=== PATIENT | male | born 1945 | race Caucasian/White ===

== ENCOUNTER 2018-01-25 12:52 | Emergency (ER) | payer MEDICARE ==
[2018-01-25] MEDS ORDERED: DIPH,PERTUS(ACELL)TETVAC-LF 0.5 ML VIAL IM ONE (13:36)
[2018-01-25] MEDS ORDERED: ceFAZolin 1,000 MG in DEXTROSE/WATER 1 50ML.BAG IVPB STA (13:36)
--- NOTE | 2018-01-25 13:46 | ED ---
General Adult HPI - General Chief complaint: Skin/Abscess/Foreign Body Stated complaint: Left Lower Leg Swollen/Discoloration Time Seen by Provider: 01/25/18 13:17 Source: patient Mode of arrival: ambulatory Limitations: no limitations - History of Present Illness Initial comments: The superficial ulcer on the left distal leg, was seen in the urgent care and they gave him some injection and this anymore send mom and some antibiotics to [place] the area patient feels that the infection is spreading to my denies any fever no chills he does have a rash which is affecting his lower extremity as well as anterior abdomen and torso he was in a hotel recently when he was driving back from [place], I don't recall any bedbugs VID does have a history of heart disease he is status post CABG and knees he said he is a borderline diabetic. No headaches no neck stiffness or chest pain or shortness of breath his left leg is always bigger than the right side this is where which was the donor site for his CABG - Related Data Home Medications Medication Instructions Recorded Confirmed Aspirin 81 mg PO DAILY 03/07/15 01/25/18 Benazepril HCl 20 mg PO DAILY 03/07/15 01/25/18 Isosorbide Mononitrate [Isosorbide 30 mg PO DAILY 03/07/15 01/25/18 Mononitrate ER] Metoprolol Tartrate [Lopressor] 50 mg PO BID 03/07/15 01/25/18 Ubidecarenone [Co Q-10] 100 mg PO DAILY 03/07/15 01/25/18 Warfarin [Coumadin] 5 mg PO HS 03/07/15 01/25/18 amLODIPine [Norvasc] 5 mg PO DAILY 03/07/15 01/25/18 [place]-3 Fatty Acids [[place]-3] 1,000 mg PO DAILY 11/01/16 01/25/18 Atorvastatin [Lipitor] 20 mg PO DAILY 01/25/18 01/25/18 Cephalexin [Keflex] 500 mg PO Q12HR 01/25/18 01/25/18 Multivitamins, Thera [Multivitamin 1 tab PO DAILY@1200 01/25/18 01/25/18 (formulary)] Previous Rx's Medication Instructions Recorded Sulfamethox-Tmp 800-160Mg [Bactrim 1 tab PO Q12HR #20 tab 01/25/18 DS 800-160 mg] Allergies Allergy/AdvReac Type Severity Reaction Status Date / Time No Known Allergies Allergy Verified 01/25/18 13:55 Review of Systems ROS Statement: Those systems with pertinent positive or pertinent negative responses have been documented in the HPI. ROS Other: All systems not noted in ROS Statement are negative. Past Medical History Past Medical History: Hypertension, Osteoarthritis (OA) Additional Past Medical History / Comment(s): hiatal hernia History of Any Multi-Drug Resistant Organisms: None Reported Past Surgical History: Coronary Bypass/CABG, Heart Catheterization, Orthopedic Surgery Additional Past Surgical History / Comment(s): triple bypass-1996, lt knee surg. Past Anesthesia/Blood Transfusion Reactions: No Reported Reaction Past Psychological History: No Psychological Hx Reported Smoking Status: Former smoker Past Alcohol Use History: Daily Past Drug Use History: None Reported - Past Family History Father Family Medical History: Myocardial Infarction (ID) General Exam - General Exam Comments Initial Comments: General: The patient is awake and alert, in no distress, and does not appear acutely ill. Skin: Skin is warm and dry and no rashes or lesions are noted. Some venous stasis on the both legs left worse than the right noticed a superficial ulcer circumference of the left leg is larger than the right leg slightly tender over the gastrocnemius area skin color and capillary refill is within normal range Eye: Pupils are equal, round and reactive to light, extra-ocular movements are intact; there is normal conjunctiva bilaterally. Ears, nose, mouth and throat: There are moist mucous membranes and no oral lesions. Neck: The neck is supple, there is no tenderness or JVD. Cardiovascular: There is a regular rate and rhythm. No murmur, rub or gallop is appreciated. Respiratory: To auscultation bilateral, no wheezing no rhonchi no distress respiratory rehman noticed Gastrointestinal: Soft, non-distended, non-tender abdomen without masses or organomegaly noted. There is no rebound or guarding present. Bowel sounds are unremarkable. Back: There is no tenderness to palpation in the midline. There is no obvious deformity. Musculoskeletal: Normal ROM, no tenderness, There is no pedal edema. There is no calf tenderness or swelling. No cords were appreciated. Neurological: CN II-XII intact, Cranial nerves III through XII are intact. There are no obvious motor or sensory deficits. Coordination appears grossly intact. Speech is normal. Psychiatric: Cooperative, appropriate mood & affect, normal judgment. Limitations: no limitations Course Vital Signs 01/25/18 01/25/18 13:02 14:18 Temperature 98.3 F 98.3 F Pulse Rate 83 72 Respiratory 20 18 Rate Blood Pressure 157/89 120/83 O2 Sat by Pulse 97 98 Oximetry Patient was reassessed at 1530, WITH THE LEGS UNREMARKABLE VITALS WHITE COUNT IS NORMAL WOUND CULTURE CULTURE WAS DONE I SPOKE WITH DR. EMMIE OLEA RECOMMENDED THE BACTRIM DOUBLE STRENGTH 1 TABLET TWICE DAILY FOR NEXT 10 DAYS AND NOW SINCE HE IS ON A COUMADIN WE CANNOT MAKE HIM SKIP COUPLE OF DAYS FOR HIS COUMADIN DOSE CONSIDERING BACTRIM BUMPS OF THE INR IS AN OLD HIS COUMADIN ON TUESDAYS AND SATURDAYS AND NOW DR. OLEA WAS TO SEE HIM IN THE OFFICE TOMORROW OR DAY AFTER TOMORROW Medical Decision Making - Lab Data Result diagrams: 01/25/18 14:05 01/25/18 14:05 Lab Results 01/25/18 01/25/18 Range/Units 14:05 14:05 WBC 5.1 (3.8-10.6) k/uL RBC 4.70 (4.30-5.90) m/uL Hgb 15.2 (13.0-17.5) gm/dL Hct 43.5 (39.0-53.0) % MCV 92.6 (80.0-100.0) fL MCH 32.3 (25.0-35.0) pg MCHC 34.9 (31.0-37.0) g/dL RDW 12.5 (11.5-15.5) % Plt Count 128 L (150-450) k/uL Neutrophils % 67 % Lymphocytes % 17 % Monocytes % 8 % Eosinophils % 7 % Basophils % 1 % Neutrophils # 3.4 (1.3-7.7) k/uL Lymphocytes # 0.9 L (1.0-4.8) k/uL Monocytes # 0.4 (0-1.0) k/uL Eosinophils # 0.3 (0-0.7) k/uL Basophils # 0.0 (0-0.2) k/uL Sodium 138 (137-145) mmol/L Potassium 4.2 (3.5-5.1) mmol/L Chloride 103 (98-107) mmol/L Carbon Dioxide 25 (22-30) mmol/L Anion Gap 10 mmol/L BUN 10 (9-20) mg/dL Creatinine 0.64 L (0.66-1.25) mg/dL Est GFR (MDRD) Af Amer >60 (>60 ml/min/1.73 sqM) Est GFR (MDRD) Non-Af >60 (>60 ml/min/1.73 sqM) Glucose 193 H (74-99) mg/dL Calcium 9.0 (8.4-10.2) mg/dL Total Bilirubin 0.8 (0.2-1.3) mg/dL AST 73 H (17-59) U/L ALT 63 (21-72) U/L Alkaline Phosphatase 82 (38-126) U/L Total Protein 7.0 (6.3-8.2) g/dL Albumin 4.2 (3.5-5.0) g/dL Disposition Clinical Impression: Left leg swelling, Left leg cellulitis Disposition: HOME SELF-CARE Condition: Good Instructions: Cellulitis (ED) Prescriptions: Sulfamethox-Tmp 800-160Mg [Bactrim DS 800-160 mg] 1 tab PO Q12HR #20 tab Referrals: Ronnie Olea MD [Primary Care Provider] - 1-2 days
[2018-01-25 14:18] VITALS: RESP 18
[2018-01-25 14:27] LABS: Basophils % (A) 1 %; Eosinophils # (A) 0.3 k/uL (0-0.7); Eosinophils % (A) 7 %; HCT 43.5 % (39.0-53.0); HGB 15.2 gm/dL (13.0-17.5); Lymphocytes # (A) 0.9 k/uL (1.0-4.8); Lymphocytes % (A) 17 %; MCH 32.3 pg (25.0-35.0); MCHC 34.9 g/dL (31.0-37.0); MCV 92.6 fL (80.0-100.0); Mean Platelet Volume 7.5; Monocytes # (A) 0.4 k/uL (0-1.0); Monocytes % (A) 8 %; Neutrophils # (A) 3.4 k/uL (1.3-7.7); Neutrophils % (A) 67 %; Platelet Count 128 k/uL (150-450); RDW 12.5 % (11.5-15.5); WBC 5.1 k/uL (3.8-10.6)
[2018-01-25 14:32] LABS: ALT 63 U/L (21-72); AST 73 U/L (17-59); Albumin 4.2 g/dL (3.5-5.0); Alkaline Phosphatase 82 U/L (38-126); Anion Gap 10 mmol/L; Blood Urea Nitrogen 10 mg/dL (9-20); Carbon Dioxide 25 mmol/L (22-30); Chloride 103 mmol/L (98-107); Glucose 193 mg/dL (74-99); Potassium 4.2 mmol/L (3.5-5.1); Sodium 138 mmol/L (137-145); Total Bilirubin 0.8 mg/dL (0.2-1.3)
--- NOTE | 2018-01-25 15:01 | US ---
EXAMINATION TYPE: US venous doppler duplex LE LT DATE OF EXAM: 01/25/2018 2:45 PM COMPARISON: NONE CLINICAL HISTORY: Pain. Discoloration and edema left lower leg, area is weeping. Patient on Coumadin for AFIB SIDE PERFORMED: Left TECHNIQUE: The lower extremity deep venous system is examined utilizing real time linear array sonog juan with graded compression, doppler sonography and color-flow sonography. VESSELS IMAGED: External Iliac Vein (EIV) Common Femoral Vein Deep Femoral Vein Greater Saphenous Vein * Femoral Vein Popliteal Vein Small Saphenous Vein * Proximal Calf Veins (* superficial vessels) Left Leg: No evidence of DVT IMPRESSION: Negative exam. No evidence of deep venous thrombosis in the left leg.
[2018-01-25 15:50] VITALS: BP 133/83; PULSE 75; TEMP 97.1
== END 2018-01-25 15:50 | disposition home or self-care (01) ==
LOC: EC 12:52
DX: L03.116 Cellulitis of left lower limb (principal); L97.929 Non-pressure chronic ulcer of unspecified part of left lower leg with unspecified severity; L97.919 Non-pressure chronic ulcer of unspecified part of right lower leg with unspecified severity; I87.8 Other specified disorders of veins; I10 Essential (primary) hypertension; M19.90 Unspecified osteoarthritis, unspecified site; Z87.891 Personal history of nicotine dependence; Z79.01 Long term (current) use of anticoagulants; Z79.82 Long term (current) use of aspirin; Z79.899 Other long term (current) drug therapy; Z98.890 Other specified postprocedural states; Z95.1 Presence of aortocoronary bypass graft; Z23 Encounter for immunization
CPT/HCPCS: 36415; 80053; 85025; 87070; 87205; 93971; 90715; 99283; 96365; 90471; J0690

== ENCOUNTER → 2018-07-10 | Outpatient (CLI) | payer MEDICARE, OTHER ==
--- NOTE | 2018-07-11 10:01 | US ---
EXAMINATION TYPE: US kidneys/renal and bladder DATE OF EXAM: 07/10/2018 COMPARISON: NONE CLINICAL HISTORY: R80.8 Proteinuria. Diabetic EXAM MEASUREMENTS: Right Kidney: 11.4 x 6.2 x 4.7 cm Left Kidney: 12.1 x 5.9 x 6.7 cm Post Void Residual Volume: 11.6 mL Right Kidney: No hydronephrosis or masses seen Left Kidney: No hydronephrosis or masses seen. Hyperechoic renal sinus is incidentally noted on left Bladder: wnl Bilateral Jets seen: Yes Normal Post Void Residual: Yes There is no evidence for hydronephrosis at this point in time. No nephrolithiasis is seen. No susy s are identified. The urinary bladder is anechoic. Bilateral ureteral jets are seen. IMPRESSION: No hydronephrosis is evident bilaterally.
== END | disposition home or self-care (01) ==
LOC: RADUSWWP 15:36
PROVIDERS: ATTEND Family Medicine
DX: R80.8 Other proteinuria (principal)
CPT/HCPCS: 76770

== ENCOUNTER → 2021-08-27 | Outpatient (CLI) | payer MEDICARE ==
--- NOTE | 2021-08-27 13:48 | CT ---
EXAMINATION TYPE: CT urogram wo/w con DATE OF EXAM: 08/27/2021 COMPARISON: Renal ultrasound July 10, 2018 HISTORY: Unknown infection with hematuria CT DLP: 2701.1 mGycm, Automated Exposure Control for Dose Reduction was Utilized. CONTRAST: CT scan of the abdomen and pelvis is performed without oral and without and with IV Contrast, patient injected with 100 mL of Isovue 300. Urogram protocol with 3-D reconstructed images created on an ind epVentario workstation and reviewed FINDINGS: KUB: Noncontrast images show no distinct renal calculi bilaterally. Postcontrast images show symmetri c cord compression uptake and excretion without concerning solid or cystic renal mass or hydronephros is seen bilaterally. There is satisfactory opacification of the bilateral ureters without obstructing mass or stone. Bladder wall shows mild wall thickening initially which improves upon increased diste ntion. No suspicious intraluminal mass or calculus is present. LUNG BASES: No significant abnormality is appreciated. LIVER/GB: Liver diffusely low dense on noncontrast images consistent with mild diffuse fatty infiltra tion. PANCREAS: No significant abnormality is seen. SPLEEN: No significant abnormality is seen. ADRENALS: No significant abnormality is seen. BOWEL: Normal-appearing appendix from cecum incidentally noted. PROSTATE/SEMINAL VESICLES: Prostate gland upper limits of normal size bulging on the bladder base. LYMPH NODES: No greater than 1cm abdominal or pelvic lymph nodes are appreciated. OSSEOUS STRUCTURES: No significant abnormality is seen. OTHER: Mild to moderate calcified plaque of the aorta extends into branch vessels. IMPRESSION: Source of hematuria not identified.
== END | disposition home or self-care (01) ==
LOC: RADCTMAIN 11:25
PROVIDERS: ATTEND Urology
DX: R31.9 Hematuria, unspecified (principal)
CPT/HCPCS: 74178; 74400; Q9967

== ENCOUNTER → 2022-12-17 | Outpatient (CLI) | payer MEDICARE ==
--- NOTE | 2022-12-18 12:46 | MR ---
EXAMINATION TYPE: MR lumbar spine wo con DATE OF EXAM: 12/17/2022 5:32 PM COMPARISON: 08/27/2021 CT. 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 IV Contrast: None. FINDINGS: Alignment: The lumbar vertebral bodies have preserved heights and alignment. Cord: The conus medullaris and the distal spinal cord appear unremarkable with regards to their signa l intensity and morphology. Bones/Discs: Scattered Modic endplate changes are seen throughout the spine. Mild inversion recovery edema along the anterior inferior endplate of L4. Multilevel disc desiccation is present. T12-L1: No evidence of significant spinal canal stenosis or neural foraminal stenosis. L1-L2: No evidence of significant spinal canal stenosis or neural foraminal stenosis. L2-L3: No evidence of significant spinal canal stenosis. Facet joint arthropathy mild bilateral neura l foraminal stenosis. L3-L4: Disc bulge and facet joint arthropathy result in moderate spinal canal and moderate right and mild left bilateral neural foraminal stenosis. Trace bilateral facet joint effusions left greater eloy n right. L4-L5: Disc bulge and facet joint arthropathy result in mild spinal canal and severe right and modera te left neural foraminal stenosis. L5-S1: The disc is rounded posterior morphology without significant spinal canal stenosis. Facet join t arthropathy with moderate to severe right and mild left neural foraminal stenosis. Trace left facet joint effusion. Other findings: None. IMPRESSION: 1. No definitive evidence of disc herniation 2. Multilevel disc degeneration with associated osteoarthritic changes most pronounced in the neural foramen on the right with severe L4-L5, moderate L3-L4 and moderate to severe L5-S1 neural foraminal stenosis on the right.
== END | disposition home or self-care (01) ==
LOC: RADMRIMAIN 16:25
PROVIDERS: ATTEND Nurse Practitioner Family
DX: M47.26 Other spondylosis with radiculopathy, lumbar region (principal); M51.16 Intervertebral disc disorders with radiculopathy, lumbar region; M51.17 Intervertebral disc disorders with radiculopathy, lumbosacral region; M48.061 Spinal stenosis, lumbar region without neurogenic claudication; M99.73 Connective tissue and disc stenosis of intervertebral foramina of lumbar region
CPT/HCPCS: 72148

== ENCOUNTER → 2023-02-11 | Outpatient (CLI) | payer MEDICARE ==
--- NOTE | 2023-02-11 15:38 | US ---
EXAMINATION TYPE: US abdomen complete DATE OF EXAM: 02/11/2023 COMPARISON: CT 2020, US 2018 CLINICAL HISTORY: R74.01. Elevated transaminase level. TECHNIQUE: Multiple sonographic images of the abdomen are obtained. FINDINGS: EXAM MEASUREMENTS: Liver Length: 20.4 cm a normal less than 15.5 cm. Gallbladder Wall: 0.24 cm CBD: 0.45 cm Spleen: 13.6 cm normal less than 12.5 cm. Right Kidney: 11.6 x 5.7 x 5.1 cm Left Kidney: 12.5 x 5.6 x 6.3 cm ASSISTANT GM OF CONTENT & DELIVERY NOTES: Limited due to gas. Pancreas: Not well seen. Liver: Appears enlarged and very heterogeneous with increased echogenicity. Limited. Gallbladder: Appears anechoic. Evidence for sonographic Sheikh's sign: No CBD: Portions seen appear wnl Spleen: Appears slightly enlarged. Right Kidney: Appears wnl Left Kidney: Appears enlarged. Upper IVC: Appears wnl Abd Aorta: Aorta appears ectatic. Limited segments were seen. Prox not seen. Mid and distal appear ectatic and distal appears upper limits at 2.9 cm AP. IMPRESSION: 1. Hepatomegaly. 2. Mild splenomegaly
== END | disposition home or self-care (01) ==
LOC: RADUSWWP 09:36
PROVIDERS: ATTEND Internal Medicine
DX: R16.2 Hepatomegaly with splenomegaly, not elsewhere classified (principal); R74.01 Elevation of levels of liver transaminase levels
CPT/HCPCS: 76700

== ENCOUNTER → 2023-10-20 | Outpatient (CLI) | payer MEDICARE ==
[2023-10-20 16:53] LABS: Chol/HDL Ratio 2.42 Ratio; LDL Cholesterol,Calculated 81.7 mg/dL (0.0-131.0)
== END | disposition home or self-care (01) ==
LOC: LABWHC1 11:11
PROVIDERS: ATTEND Nurse Practitioner Adult Health
DX: E78.5 Hyperlipidemia, unspecified (principal)
CPT/HCPCS: 36415; 80061

== ENCOUNTER → 2024-08-20 | Outpatient (CLI) | payer MEDICARE ==
--- NOTE | 2024-08-23 09:15 | CA ---
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 67 - 155 / 56 - 104 cm??? LV Systolic Volume MOD BP 47.5 cm??? - 58 / 19 - 49 cm??? LV Ejection Fraction MOD BP 35.7 % >= 55 % LV Cardiac Index MOD BP 765.8 cm???/min???m??? LV Diastolic Volume MOD 4C 80.0 cm??? LV Systolic Volume MOD 4C 49.6 cm??? LV Ejection Fraction MOD 4C 37.9 % LV Cardiac Index MOD 4C 883.3 cm???/min???m??? LV Diastolic Length 4C 7.2 cm LV Systolic Length 4C 6.7 cm LV Diastolic Volume MOD 2C 66.7 cm??? LV Systolic Volume MOD 2C 43.9 cm??? LV Ejection Fraction MOD 2C 34.1 % LV Cardiac Index MOD 2C 661.7 cm???/min???m??? LV Diastolic Length 2C 7.4 cm LV Systolic Length 2C 6.4 cm LA Volume 173.2 cm??? 18 - 58 / 22 - 52 cm??? LA Volume Index 77.5 cm???/m??? 16 - 28 cm???/m??? M-MODE Aortic Root Diameter MM 3.0 cm LA Systolic Diameter MM 6.0 cm LA Ao Ratio MM 2.0 AV Cusp Separation MM 1.2 cm DOPPLER AV Peak Velocity 253.2 cm/s AV Peak Gradient 25.6 mmHg AV Mean Velocity 180.1 cm/s AV Mean Gradient 14.4 mmHg AV Velocity Time Integral 55.6 cm LVOT Peak Velocity 99.1 cm/s LVOT Peak Gradient 3.9 mmHg LVOT Velocity Time Integral 22.4 cm LVOT Stroke Volume 92.8 cm??? LVOT Stroke Volume Index 42.7 ml/m??? LVOT Cardiac Index 2699.5 cm???/min???m??? AV Area Cont Eq vti 1.7 cm??? AV Area Cont Eq pk 1.6 cm??? TR Peak Velocity 277.1 cm/s TR Peak Gradient 30.7 mmHg Right Ventricular Systolic Press 50.7 mmHg FINDINGS Left Ventricle Left ventricular ejection fraction is estimated at 40-45%. Mildly increased septal wall thickness. Mild-to Moderately decreased left ventricular ejection fraction. Left ventricular cavity size normal. Reduced global left ventricular systolic function. Right Ventricle Mild right ventricular dilatation. Moderate pulmonary hypertension. Right Atrium Severe right atrial dilatation. Left Atrium Severely increased left atrial diameter. Severely increased left atrial volume. Moderately increased left atrial area. Mitral Valve Structurally normal mitral valve. Mitral annular calcification. Moderate mitral regurgitation. Aortic Valve Trileaflet aortic valve. Mild aortic stenosis with a peak gradient of 25 mmHg and a mean gradient of 14 mmHg. Tricuspid Valve Structurally normal tricuspid valve. Moderate tricuspid regurgitation. No tricuspid stenosis. Pulmonic Valve Structurally normal pulmonic valve. Trace pulmonic regurgitation. No pulmonic stenosis. Pericardium No pericardial or pleural effusion. Aorta Normal size aortic root and proximal ascending aorta. CONCLUSIONS Moderate LV systolic dysfunction Dilated left atrium Moderate pulmonary hypertension Mild aortic stenosis Moderate mitral regurgitation and moderate tricuspid regurgitation Previewed by: Dr. Himanshu Cedeno MD (Electronically Signed) Final Date: 23 August 2024 09:10
== END | disposition home or self-care (01) ==
LOC: RADECHMAIN 14:38
PROVIDERS: ATTEND Internal Medicine
DX: I25.5 Ischemic cardiomyopathy
CPT/HCPCS: 93306

== ENCOUNTER → 2024-10-20 | Outpatient (CLI) | payer MEDICARE ==
[2024-10-20 19:07] LABS: ALT 27 U/L (10-49); AST 31 U/L (14-35); Albumin 4.5 g/dL (3.8-4.9); Albumin/Globulin Ratio 1.61 Ratio (1.60-3.17); Alkaline Phosphatase 76 U/L (41-126); Blood Urea Nitrogen 16.3 mg/dL (9.0-27.0); Calcium 9.5 mg/dL (8.7-10.3); Carbon Dioxide 24.8 mmol/L (21.6-31.8); Chloride 101 mmol/L (96-109); Globulin 2.8 g/dL (1.6-3.3); Glucose 191 mg/dL (70-110); Magnesium 1.8 mg/dL (1.5-2.4); Potassium 4.8 mmol/L (3.5-5.5); Sodium 138 mmol/L (135-145); Total Bilirubin 0.9 mg/dL (0.3-1.2); Total Protein 7.3 g/dL (6.2-8.2)
== END | disposition home or self-care (01) ==
LOC: LABWHC1 13:52
PROVIDERS: ATTEND Internal Medicine Clinical Cardiac Electrophysiology
DX: I42.8 Other cardiomyopathies (principal)
CPT/HCPCS: 36415; 80053; 83735; 84443

== ENCOUNTER → 2025-05-20 | Outpatient (CLI) | payer MEDICARE ==
--- NOTE | 2025-05-20 08:35 | US ---
EXAMINATION TYPE: US Aorta Screening DATE OF EXAM: 05/20/2025 COMPARISON: NONE CLINICAL INDICATION: Male, 79 years old with history of I70.0 CALCIFICATION OF ABD AORTA; TECHNIQUE: Multiple sonographic images of the abdominal aorta are obtained with grayscale and color D oppler imaging. FINDINGS: EXAM MEASUREMENTS: Abdominal Aorta: Proximal: 2.8 x 2.5 cm Mid: 2.3 x 2.1 cm Distal: 3.3 x 3.2 cm Bifurcation: Right Iliac: 1.6 x 1.4 cm Left Iliac: 1.5 x 1.6 cm OPHTHALMIC ASST NOTES: Limited visualization of proximal aorta. Distal AAA visualized at time of scan. IMPRESSION: 3.0 to 3.9 cm Abdominal aortic aneurysm. Recommendation: Repeat Ultrasound in 3 year per Society of V ascular Surgery Recommendations. [email or web address], , 05/20/2025 8:32 AM
== END | disposition home or self-care (01) ==
LOC: RADUSWWP 07:18
PROVIDERS: ATTEND Internal Medicine
DX: I70.0 Atherosclerosis of aorta (principal); I71.40 Abdominal aortic aneurysm, without rupture, unspecified
CPT/HCPCS: 93979